=== PATIENT | male | born 1970 | race African-American/Black ===

== ENCOUNTER 2017-04-30 14:56 | Inpatient (IN) | payer MEDICAID ==
[~2017-04-30] VITALS: Ht 180.3 cm; Wt 68.0 kg
[~2017-04-30 14:56] MED LIST: CEPHALEXIN; PHENOBARBITAL; dilantin; divalproex
[2017-04-30] MEDS ORDERED: SODIUM CHLORIDE 0.9% 1,000 ML IV ONE (21:20)
[2017-04-30] MEDS ORDERED: VANCOMYCIN 1 G PREMIX 200 ML IV ONE (21:30)
[2017-04-30] MEDS ORDERED: PIPERACILLIN/TAZ 3.375G PREMIX 50 ML IV ONE (21:30)
[2017-04-30 21:58] LABS: BASOPHILS % 0.2 % (0.0-2.0); EOSINOPHILS % 1.5 % (0.0-5.0); HEMATOCRIT. 35.4 % (42.0-52.0); HEMOGLOBIN. 11.9 g/dL (14.0-18.0); LYMPHOCYTES % 18.9 % (20.0-50.0); MEAN CORPUSCULAR HEMOGLOBIN 28.8 pg (28.0-32.0); MEAN CORPUSCULAR VOLUME 85.9 fL (80.0-94.0); MEAN PLATELET VOLUME 8.4 fl (7.4-10.4); MONOCYTES % 6.9 % (2.0-8.0); NEUTROPHILS % 72.5 % (40.0-76.0); PLATELET 365 x1000/uL (130-400); RED BLOOD CELL COUNT 4.12 mill/uL (4.7-6.1); RED CELL DISTRIBUTION WIDTH 13.9 % (11.6-14.6)
[2017-04-30 22:01] LABS: CHLORIDE 102 mEq/L (98-107)
[2017-04-30 22:02] LABS: PROTHROMBIN TIME 10.7 sec (9.4-11.6)
[2017-04-30 22:05] LABS: CARBON DIOXIDE 27 mEq/L (21-32)
[2017-05-01] VITALS (7 sets, daily range): BP systolic 102–125; BP diastolic 60–76
[2017-05-01 13:35] LABS: BASOPHILS % 0.6 % (0.0-2.0); EOSINOPHILS % 1.1 % (0.0-5.0); HEMATOCRIT. 38.2 % (42.0-52.0); HEMOGLOBIN. 12.6 g/dL (14.0-18.0); LYMPHOCYTES % 18.3 % (20.0-50.0); MEAN CORPUSCULAR HEMOGLOBIN 28.9 pg (28.0-32.0); MEAN CORPUSCULAR VOLUME 87.4 fL (80.0-94.0); MEAN PLATELET VOLUME 8.2 fl (7.4-10.4); MONOCYTES % 7.9 % (2.0-8.0); NEUTROPHILS % 72.1 % (40.0-76.0); PLATELET 430 x1000/uL (130-400); RED BLOOD CELL COUNT 4.37 mill/uL (4.7-6.1); RED CELL DISTRIBUTION WIDTH 13.9 % (11.6-14.6)
[2017-05-01 14:01] LABS: CARBON DIOXIDE 29 mEq/L (21-32); CHLORIDE 101 mEq/L (98-107)
[2017-05-01] MEDS ORDERED: PHENOBARBITAL 100MG TABLET PO SCH (21:00)
[2017-05-01] MEDS ORDERED: CLONIDINE 0.1MG TABLET PO PRN (23:00)
[2017-05-01] MEDS ORDERED: DIPHENHYDRAMINE 50MG/ML VIAL IV PRN (23:00)
[2017-05-01] MEDS ORDERED: IPRATROPIUM/ALBUTEROL 0.5-3(2.5)MG/3ML NEB INH PRN (23:00)
[2017-05-01] MEDS ORDERED: DOCUSATE SODIUM 100MG CAPSULE PO PRN (23:00)
[2017-05-01] MEDS ORDERED: ONDANSETRON HCL 4MG/2ML VIAL IV PRN (23:00)
[2017-05-01] MEDS ORDERED: ACETAMINOPHEN 650MG SUPP PR PRN (23:00)
[2017-05-01] MEDS ORDERED: NA PHOS,M-B/NA PHOS,DI-BA ENEMA 118ML PR PRN (23:00)
[2017-05-01] MEDS ORDERED: PIPERACILLIN/TAZ 2.25G PREMIX 50 ML IV SCH (23:00)
[2017-05-01] MEDS ORDERED: MAGNESIUM/ALUMINUM HYDROXIDE/SIMETHICONE 30ML UDC PO PRN (23:00)
[2017-05-01] MEDS ORDERED: GUAIFENESIN 200MG/10ML SUGAR FREE UDC PO PRN (23:00)
[2017-05-01] MEDS: PHENYTOIN SODIUM EXTENDED 100MG CAPSULE PO SCH (23:39)
[2017-05-01] MEDS: PHENOBARBITAL 30 MG TABLET PO SCH (23:40)
[2017-05-02] VITALS: BP 110/62
[2017-05-02] MEDS: PIPERACILLIN/TAZ 3.375G PREMIX 50 ML IV SCH ×4 (03:34→21:00)
[2017-05-02 04:00] VITALS: BP 105/51
[2017-05-02] MEDS ORDERED: VANCOMYCIN 1 G PREMIX 200 ML IV SCH (04:00)
[2017-05-02] MEDS: PHENYTOIN SODIUM EXTENDED 100MG CAPSULE PO SCH ×3 (07:46→21:54)
[2017-05-02] MEDS: SODIUM CHLORIDE 0.9% INJ 3ML FLUSH IVF SCH ×3 (07:46→22:00)
[2017-05-02 07:50] LABS: BASOPHILS % 0.7 % (0.0-2.0); EOSINOPHILS % 1.3 % (0.0-5.0); HEMATOCRIT. 37.4 % (42.0-52.0); HEMOGLOBIN. 12.7 g/dL (14.0-18.0); LYMPHOCYTES % 17.9 % (20.0-50.0); MEAN CORPUSCULAR HEMOGLOBIN 29.3 pg (28.0-32.0); MEAN CORPUSCULAR VOLUME 86.4 fL (80.0-94.0); MEAN PLATELET VOLUME 8.8 fl (7.4-10.4); MONOCYTES % 8.2 % (2.0-8.0); NEUTROPHILS % 71.9 % (40.0-76.0); PLATELET 433 x1000/uL (130-400); RED BLOOD CELL COUNT 4.33 mill/uL (4.7-6.1); RED CELL DISTRIBUTION WIDTH 13.8 % (11.6-14.6)
[2017-05-02 08:00] VITALS: BP 115/76
[2017-05-02 08:34] LABS: CARBON DIOXIDE 26 mEq/L (21-32); CHLORIDE 102 mEq/L (98-107)
[2017-05-02 08:39] LABS: HDL CHOLESTEROL 28 mg/dL (40-59); LDL CHOLESTEROL 111 mg/dL (5-100)
[2017-05-02] MEDS ORDERED: PHENOBARBITAL 60MG TABLET PO SCH (09:00)
[2017-05-02] MEDS: PHENOBARBITAL 30 MG TABLET PO SCH ×3 (09:20→18:52)
[2017-05-02 12:00] VITALS: BP 104/66
[2017-05-02] MEDS: VANCOMYCIN 1250MG in DEXTROSE 5% WATER 250ML IV SCH ×2 (13:10→20:00)
[2017-05-02 16:00] VITALS: BP 107/66
[2017-05-02 20:00] VITALS: BP 112/68
[2017-05-03] VITALS: BP 114/68
[2017-05-03] MEDS: PIPERACILLIN/TAZ 3.375G PREMIX 50 ML IV SCH ×4 (03:00→21:00)
[2017-05-03 04:00] VITALS: BP 110/68
[2017-05-03] MEDS: VANCOMYCIN 1250MG in DEXTROSE 5% WATER 250ML IV SCH ×3 (04:00→20:00)
[2017-05-03] MEDS: SODIUM CHLORIDE 0.9% INJ 3ML FLUSH IVF SCH ×3 (06:00→22:00)
[2017-05-03] MEDS: PHENYTOIN SODIUM EXTENDED 100MG CAPSULE PO SCH ×3 (07:17→22:06)
[2017-05-03 08:00] VITALS: BP 98/70
[2017-05-03] MEDS: PHENOBARBITAL 30 MG TABLET PO SCH ×3 (08:58→17:02)
[2017-05-03 09:41] LABS: BASOPHILS % 0.7 % (0.0-2.0); EOSINOPHILS % 0.6 % (0.0-5.0); HEMATOCRIT. 37.9 % (42.0-52.0); HEMOGLOBIN. 12.9 g/dL (14.0-18.0); LYMPHOCYTES % 18.4 % (20.0-50.0); MEAN CORPUSCULAR HEMOGLOBIN 29.2 pg (28.0-32.0); MEAN CORPUSCULAR VOLUME 85.8 fL (80.0-94.0); MEAN PLATELET VOLUME 8.3 fl (7.4-10.4); MONOCYTES % 6.8 % (2.0-8.0); NEUTROPHILS % 73.5 % (40.0-76.0); PLATELET 466 x1000/uL (130-400); RED BLOOD CELL COUNT 4.42 mill/uL (4.7-6.1); RED CELL DISTRIBUTION WIDTH 14.1 % (11.6-14.6)
[2017-05-03 10:12] LABS: CARBON DIOXIDE 26 mEq/L (21-32); CHLORIDE 101 mEq/L (98-107)
[2017-05-03 10:15] LABS: VANCOMYCIN TROUGH 3.2 ug/mL (5.0-10.0)
[2017-05-03 12:00] VITALS: BP 101/71
[2017-05-03 16:00] VITALS: BP 115/60
[2017-05-03] MEDS: HYDROCODONE/ACETAMINOPHEN 5/325MG TABLET PO PRN ×2 (18:56→23:28)
[2017-05-03 20:00] VITALS: BP 98/71
[2017-05-04] VITALS: BP 129/66
[2017-05-04] MEDS: PIPERACILLIN/TAZ 3.375G PREMIX 50 ML IV SCH ×2 (03:00→09:00)
[2017-05-04] MEDS: VANCOMYCIN 1250MG in DEXTROSE 5% WATER 250ML IV SCH ×2 (03:28→12:00)
[2017-05-04 04:00] VITALS: BP 109/74
[2017-05-04] MEDS: SODIUM CHLORIDE 0.9% INJ 3ML FLUSH IVF SCH (05:46)
[2017-05-04] MEDS: PHENYTOIN SODIUM EXTENDED 100MG CAPSULE PO SCH (06:04)
[2017-05-04 08:00] VITALS: BP 118/73
[2017-05-04] MEDS: PHENOBARBITAL 30 MG TABLET PO SCH ×2 (09:16→13:00)
[2017-05-04 12:16] VITALS: BP 98/74
== END 2017-05-04 12:15 | disposition left against medical advice (07) | DRG 317 ==
LOC: ER 16:05 → EDBEDREQ 21:33 → EDBEDREQSVC 21:37 → EDBEDREQ 21:37 → 6EST 22:39 → ENRESERV 22:40
PROVIDERS: ADMIT Family Medicine; ATTEND Family Medicine
PROC: 0J9Q0ZZ Drainage of Right Foot Subcutaneous Tissue and Fascia, Open Approach (ICD-10-PCS; principal; 2017-05-03)
PROC: 02HV33Z Insertion of Infusion Device into Superior Vena Cava, Percutaneous Approach (ICD-10-PCS; 2017-05-04)
PROC: B5181ZA Fluoroscopy of Superior Vena Cava using Low Osmolar Contrast, Guidance (ICD-10-PCS; 2017-05-04)
PROC: B548ZZA Ultrasonography of Superior Vena Cava, Guidance (ICD-10-PCS; 2017-05-04)
DX: M86.8X7 Other osteomyelitis, ankle and foot (principal); E43 Unspecified severe protein-calorie malnutrition; G40.909 Epilepsy, unspecified, not intractable, without status epilepticus; L02.416 Cutaneous abscess of left lower limb; L03.116 Cellulitis of left lower limb; L02.611 Cutaneous abscess of right foot; F17.210 Nicotine dependence, cigarettes, uncomplicated; F12.90 Cannabis use, unspecified, uncomplicated; L97.529 Non-pressure chronic ulcer of other part of left foot with unspecified severity; Z79.899 Other long term (current) drug therapy; Z89.422 Acquired absence of other left toe(s); Z68.20 Body mass index [BMI] 20.0-20.9, adult
CPT/HCPCS: 36415; 36569; 73630; 73718; 76937; 77001; 80053; 80061; 80202; 83605; 85025; 85610; 85651; 87040; 87070; 87205; 93005; 96365; 96368; 99285; C1725; J2543; J3370; J7030; J7040; J7060

== ENCOUNTER 2017-05-17 13:55 | Emergency (ER) | payer MEDICAID ==
[~2017-05-17] VITALS: Ht 185.4 cm; Wt 78.0 kg
[2017-05-17 14:14] VITALS: BP 127/67
== END 2017-05-17 19:00 | disposition left against medical advice (07) ==
LOC: ER 15:20
DX: Z45.2 Encounter for adjustment and management of vascular access device (principal); I10 Essential (primary) hypertension; G40.909 Epilepsy, unspecified, not intractable, without status epilepticus; Z79.899 Other long term (current) drug therapy
CPT/HCPCS: 99281; Z7610

== ENCOUNTER 2018-12-11 19:45 | Inpatient (IN) | payer MEDICAID ==
[~2018-12-11] VITALS: Ht 175.3 cm; Wt 73.9 kg
[2018-12-11] MEDS ORDERED: ONDANSETRON HCL 4MG/2ML INJ IV STA (21:42)
[2018-12-11] MEDS ORDERED: SODIUM CHLORIDE 0.9% 1,000 ML IV ONE (21:42)
[2018-12-11] MEDS ORDERED: MORPHINE SULFATE 4 MG/ML CPJ (NOT FOR IM USE) IV STA (21:42)
[2018-12-12 00:27] LABS: CHLORIDE 104 mEq/L (98-107)
[2018-12-12 00:29] LABS: HEMATOCRIT. 40.8 % (42.0-52.0); HEMOGLOBIN. 13.7 g/dL (14.0-18.0); MEAN CORPUSCULAR HEMOGLOBIN 29.4 pg (28.0-32.0); MEAN CORPUSCULAR VOLUME 87.9 fL (80.0-94.0); MEAN PLATELET VOLUME 8.8 fl (7.4-10.4); PLATELET 235 x1000/uL (130-400); RED BLOOD CELL COUNT 4.64 mill/uL (4.7-6.1); RED CELL DISTRIBUTION WIDTH 14.8 % (11.6-14.6)
[2018-12-12] MEDS ORDERED: SODIUM CHLORIDE 0.9% 1000ML BAG (SEPSIS BOLUS) IV ONE (00:45)
[2018-12-12] MEDS ORDERED: LEVOFLOXACIN 750MG PREMIX 150 ML IV ONE (00:45)
[2018-12-12 01:25] LABS: CLARITY URINE CLEAR (CLEAR); COLOR URINE YELLOW (YELLOW); KETONES URINE NEGATIVE (NEGATIVE); LEUKOCYTE ESTERASE URINE NEGATIVE (NEGATIVE); NITRITE URINE NEGATIVE (NEGATIVE); OCCULT BLOOD URINE NEGATIVE (NEGATIVE); PROTEIN URINE NEGATIVE (NEGATIVE); SPECIFIC GRAVITY URINE 1.015 (1.005-1.030)
[2018-12-12 02:57] LABS: PLATELET ESTIMATE NORMAL
[2018-12-12 04:10] VITALS: BP 125/71
[2018-12-12 04:30] VITALS: BP 125/71
[2018-12-12 08:00] VITALS: BP 135/65
[2018-12-12] MEDS: MORPHINE SULFATE 4 MG/ML CPJ (NOT FOR IM USE) IV PRN ×2 (11:30→20:29)
[2018-12-12 12:11] VITALS: BP 139/72
[2018-12-12 12:39] LABS: BASOPHILS % 0.4 % (0.0-2.0); EOSINOPHILS % 0.2 % (0.0-5.0); HEMATOCRIT. 39.9 % (42.0-52.0); HEMOGLOBIN. 13.1 g/dL (14.0-18.0); LYMPHOCYTES % 7.7 % (20.0-50.0); MEAN CORPUSCULAR HEMOGLOBIN 29.2 pg (28.0-32.0); MEAN CORPUSCULAR VOLUME 89.1 fL (80.0-94.0); MEAN PLATELET VOLUME 8.6 fl (7.4-10.4); MONOCYTES % 6.2 % (2.0-8.0); NEUTROPHILS % 85.5 % (40.0-76.0); PLATELET 215 x1000/uL (130-400); RED BLOOD CELL COUNT 4.48 mill/uL (4.7-6.1); RED CELL DISTRIBUTION WIDTH 15.1 % (11.6-14.6)
[2018-12-12 12:46] LABS: CHLORIDE 106 mEq/L (98-107)
[2018-12-12 16:24] VITALS: BP 132/79
[2018-12-12 20:00] VITALS: BP 123/68
[2018-12-13] VITALS: BP 122/79
[2018-12-13 04:00] VITALS: BP 139/74
[2018-12-13 08:00] VITALS: BP 140/76
[2018-12-13] MEDS ORDERED: [UNRECOGNIZED DRUG - OTHER] (10:58)
[2018-12-13] MEDS ORDERED: TC1U15 TP (11:01)
[2018-12-13] MEDS ORDERED: CHOL100046 MT (11:05)
[2018-12-13 12:00] VITALS: BP 135/75
[2018-12-13] MEDS: PHENOBARBITAL 30 MG TABLET PO SCH ×3 (12:58→18:29)
[2018-12-13] MEDS: PHENYTOIN SODIUM EXTENDED 100MG CAPSULE PO SCH ×2 (12:58→20:11)
[2018-12-13] MEDS: HYDROCODONE/ACETAMINOPHEN 5/325MG TABLET PO PRN ×2 (13:04→20:03)
[2018-12-13 16:00] VITALS: BP 133/79
[2018-12-13] MEDS: MORPHINE SULFATE 4 MG/ML CPJ (NOT FOR IM USE) IV PRN (16:37)
[2018-12-13 20:00] VITALS: BP 138/74
[2018-12-14] VITALS: BP 148/77
[2018-12-14 04:00] VITALS: BP 148/65
[2018-12-14 06:19] LABS: BASOPHILS % 0.6 % (0.0-2.0); EOSINOPHILS % 0.3 % (0.0-5.0); HEMATOCRIT. 40.2 % (42.0-52.0); HEMOGLOBIN. 13.5 g/dL (14.0-18.0); LYMPHOCYTES % 17.8 % (20.0-50.0); MEAN CORPUSCULAR HEMOGLOBIN 29.2 pg (28.0-32.0); MEAN PLATELET VOLUME 9.1 fl (7.4-10.4); MONOCYTES % 8.3 % (2.0-8.0); PLATELET 257 x1000/uL (130-400); RED BLOOD CELL COUNT 4.62 mill/uL (4.7-6.1); RED CELL DISTRIBUTION WIDTH 14.8 % (11.6-14.6)
[2018-12-14 06:28] LABS: CHLORIDE 102 mEq/L (98-107)
[2018-12-14] MEDS: PHENYTOIN SODIUM EXTENDED 100MG CAPSULE PO SCH (06:32)
== END 2018-12-14 08:44 | disposition left against medical advice (07) | DRG 135 ==
LOC: ER 19:45 → 8WST 12-12 01:56 → ENRESERV 12-12 03:19
PROVIDERS: ADMIT Internal Medicine; ATTEND Internal Medicine
DX: S22.42XA Multiple fractures of ribs, left side, initial encounter for closed fracture (principal); J80 Acute respiratory distress syndrome; L97.529 Non-pressure chronic ulcer of other part of left foot with unspecified severity; D64.9 Anemia, unspecified; S00.83XA Contusion of other part of head, initial encounter; D72.825 Bandemia; G40.909 Epilepsy, unspecified, not intractable, without status epilepticus; R09.02 Hypoxemia; R73.9 Hyperglycemia, unspecified; Y93.55 Activity, bike riding; L84 Corns and callosities; V29.9XXA Motorcycle rider (driver) (passenger) injured in unspecified traffic accident, initial encounter; Y92.410 Unspecified street and highway as the place of occurrence of the external cause; Y99.8 Other external cause status; Z89.422 Acquired absence of other left toe(s)
CPT/HCPCS: 36415; 70486; 71045; 71250; 73560; 80048; 83605; 87076; 93005; 93970; 96374; 99285; C1893; J1956; J2270; J2405; J7030; J7040; A4315

== ENCOUNTER 2019-02-08 13:09 | Emergency (ER) | payer MEDICAID ==
[~2019-02-08] VITALS: Ht 177.8 cm; Wt 82.0 kg
[~2019-02-08 13:09] MED LIST changes: +CHOL100046 MT; +TC1U15 TP; +[UNRECOGNIZED DRUG - OTHER]
[2019-02-08 13:15] VITALS: BP 103/62
== END 2019-02-08 14:26 | disposition left against medical advice (07) ==
LOC: ER 13:09
DX: Z53.21 Procedure and treatment not carried out due to patient leaving prior to being seen by health care provider (principal)
CPT/HCPCS: 99281

== ENCOUNTER 2019-02-08 18:53 | Emergency (ER) | payer MEDICAID ==
[~2019-02-08] VITALS: Ht 172.7 cm; Wt 84.0 kg
[2019-02-08 20:35] VITALS: BP 114/62
== END 2019-02-08 21:11 | disposition home or self-care (01) ==
LOC: ER 18:53
DX: H92.01 Otalgia, right ear (principal); E11.9 Type 2 diabetes mellitus without complications; G40.909 Epilepsy, unspecified, not intractable, without status epilepticus
CPT/HCPCS: 99283

== ENCOUNTER 2020-02-13 17:40 | Emergency (ER) | payer MEDICAID ==
[~2020-02-13] VITALS: Ht 177.8 cm; Wt 82.0 kg
[2020-02-13 17:47] VITALS: BP 127/66
[2020-02-13] MEDS ORDERED: IBUPROFEN 600MG TABLET PO ONE (18:30)
== END 2020-02-13 21:00 | disposition left against medical advice (07) ==
LOC: ER 17:40
DX: S69.92XA Unspecified injury of left wrist, hand and finger(s), initial encounter (principal); Z79.899 Other long term (current) drug therapy; V29.88XA Motorcycle rider (driver) (passenger) injured in other specified transport accidents, initial encounter; Y93.55 Activity, bike riding; Y92.89 Other specified places as the place of occurrence of the external cause; Y99.8 Other external cause status
CPT/HCPCS: 99283

== ENCOUNTER 2020-02-13 22:27 | Emergency (ER) | payer MEDICAID ==
[~2020-02-13] VITALS: Ht 180.3 cm; Wt 84.0 kg
[2020-02-13 23:58] VITALS: BP 131/71
[2020-02-14] MEDS ORDERED: KETOROLAC 30MG/ML VIAL IM ONE
== END 2020-02-14 01:56 | disposition home or self-care (01) ==
LOC: ER 22:27
DX: S62.015A Nondisplaced fracture of distal pole of navicular [scaphoid] bone of left wrist, initial encounter for closed fracture (principal); G40.909 Epilepsy, unspecified, not intractable, without status epilepticus; V14.4XXA Pedal cycle driver injured in collision with heavy transport vehicle or bus in traffic accident, initial encounter; Y93.89 Activity, other specified; Y92.488 Other paved roadways as the place of occurrence of the external cause
CPT/HCPCS: 29125; 73110; 96372; 99283; J1885

== ENCOUNTER 2020-02-14 17:37 | Emergency (ER) | payer MEDICAID ==
[~2020-02-14] VITALS: Ht 180.3 cm; Wt 82.0 kg
[2020-02-14 17:42] VITALS: BP 124/78
== END 2020-02-14 18:26 | disposition home or self-care (01) ==
LOC: ER 17:37
DX: Z76.0 Encounter for issue of repeat prescription (principal); G40.909 Epilepsy, unspecified, not intractable, without status epilepticus
CPT/HCPCS: 99281

== ENCOUNTER 2020-07-01 18:18 | Emergency (ER) | payer MEDICAID ==
[~2020-07-01] VITALS: Ht 172.7 cm; Wt 65.0 kg
[2020-07-01 19:29] LABS: BASOPHILS % 0.6 % (0.0-2.0); EOSINOPHILS % 0.7 % (0.0-5.0); HEMATOCRIT. 40.1 % (42.0-52.0); HEMOGLOBIN. 13.3 g/dL (14.0-18.0); LYMPHOCYTES % 14.9 % (20.0-50.0); MEAN CORPUSCULAR HEMOGLOBIN 28.5 pg (28.0-32.0); MEAN CORPUSCULAR VOLUME 85.6 fL (80.0-94.0); MEAN PLATELET VOLUME 7.9 fl (7.4-10.4); NEUTROPHILS % 79.8 % (40.0-76.0); PLATELET 464 x1000/uL (130-400); RED BLOOD CELL COUNT 4.68 mill/uL (4.7-6.1); RED CELL DISTRIBUTION WIDTH 15.9 % (11.6-14.6)
[2020-07-01 19:35] LABS: CHLORIDE 106 mEq/L (98-107)
[2020-07-01 19:41] LABS: ETHANOL BLOOD < 10 mg/dL
[2020-07-01 19:56] VITALS: BP 122/81
[2020-07-01 20:07] LABS: PHENOBARBITAL < 2.1 ug/mL (15.0-40.0)
== END 2020-07-01 21:33 | disposition home or self-care (01) ==
LOC: ER 18:18
DX: G40.909 Epilepsy, unspecified, not intractable, without status epilepticus (principal); R03.0 Elevated blood-pressure reading, without diagnosis of hypertension
CPT/HCPCS: 36415; 70450; 71045; 80053; 80184; 80185; 80320; 84484; 85025; 93005; 99285; Z7610; G0480

== ENCOUNTER 2021-01-05 22:44 | Emergency (ER) | payer MEDICAID ==
[~2021-01-05] VITALS: Ht 172.7 cm; Wt 82.0 kg
[2021-01-05 23:27] LABS: BASOPHILS % 0.7 % (0.0-2.0); EOSINOPHILS % 2.2 % (0.0-5.0); HEMATOCRIT. 38.2 % (42.0-52.0); HEMOGLOBIN. 12.6 g/dL (14.0-18.0); LYMPHOCYTES % 25.9 % (20.0-50.0); MEAN CORPUSCULAR HEMOGLOBIN 28.2 pg (28.0-32.0); MEAN CORPUSCULAR VOLUME 85.6 fL (80.0-94.0); MEAN PLATELET VOLUME 8.5 fl (7.4-10.4); MONOCYTES % 5.4 % (2.0-8.0); NEUTROPHILS % 65.8 % (40.0-76.0); PLATELET 330 x1000/uL (130-400); RED BLOOD CELL COUNT 4.46 mill/uL (4.7-6.1); RED CELL DISTRIBUTION WIDTH 14.7 % (11.6-14.6)
[2021-01-05 23:33] LABS: CHLORIDE 108 mEq/L (98-107)
[2021-01-05 23:37] LABS: ETHANOL BLOOD < 10 mg/dL
[2021-01-06 01:30] VITALS: BP 111/71
== END 2021-01-06 01:48 | disposition home or self-care (01) ==
LOC: ER 22:44
DX: G40.909 Epilepsy, unspecified, not intractable, without status epilepticus (principal); Z87.820 Personal history of traumatic brain injury; D64.9 Anemia, unspecified; R00.0 Tachycardia, unspecified; D72.829 Elevated white blood cell count, unspecified
CPT/HCPCS: 36415; 80048; 80320; 82962; 85025; 99283; G0480

== ENCOUNTER 2021-02-05 08:23 | Inpatient (IN) | payer MEDICAID ==
[~2021-02-05] VITALS: Ht 172.7 cm; Wt 61.4 kg
[2021-02-05] MEDS ORDERED: VANCOMYCIN 1 G PREMIX 200 ML IV ONE (09:15)
[2021-02-05] MEDS ORDERED: PIPERACILLIN/TAZ 3.375G PREMIX 50 ML IV ONE (09:15)
[2021-02-05 09:20] LABS: BASOPHILS % 0.2 % (0.0-2.0); EOSINOPHILS % 0.3 % (0.0-5.0); HEMATOCRIT. 34.3 % (42.0-52.0); HEMOGLOBIN. 11.6 g/dL (14.0-18.0); LYMPHOCYTES % 10.3 % (20.0-50.0); MEAN CORPUSCULAR HEMOGLOBIN 28.6 pg (28.0-32.0); MEAN CORPUSCULAR VOLUME 84.2 fL (80.0-94.0); MEAN PLATELET VOLUME 8.2 fl (7.4-10.4); MONOCYTES % 8.2 % (2.0-8.0); PLATELET 428 x1000/uL (130-400); RED BLOOD CELL COUNT 4.07 mill/uL (4.7-6.1); RED CELL DISTRIBUTION WIDTH 15.6 % (11.6-14.6)
[2021-02-05 09:22] LABS: CHLORIDE 101 mEq/L (98-107)
[2021-02-05 10:22] LABS: C REACTIVE PROTEIN CARDIAC > 190.00 mg/L (0.00-3.00)
[2021-02-05 18:00] VITALS: BP 111/79
[2021-02-05 20:00] VITALS: BP 104/64
[2021-02-05] MEDS ORDERED: MORPHINE SULFATE 2 MG/ML CPJ (NOT FOR IM USE) IV PRN (20:45)
[2021-02-05 21:00] VITALS: BP 104/64
[2021-02-05] MEDS ORDERED: ENOXAPARIN 40MG/0.4ML SYR SUBCUT SCH (21:00)
[2021-02-05] MEDS ORDERED: PIPERACILLIN/TAZOBACTAM 3.375 G/VIAL IV SCH (22:00)
[2021-02-05] MEDS ORDERED: PHENOBARBITAL 60MG TABLET PO ONE (22:00)
[2021-02-05] MEDS: PIPERACILLIN/TAZOBACTAM 3.375G in DEXT 5% WATER 50ML IV SCH (23:09)
[2021-02-05] MEDS: VANCOMYCIN 750 MG PREMIX 150 ML IV SCH (23:09)
[2021-02-06 04:00] VITALS: BP 110/65
[2021-02-06] MEDS: VANCOMYCIN 750 MG PREMIX 150 ML IV SCH (05:26)
[2021-02-06] MEDS: PIPERACILLIN/TAZOBACTAM 3.375G in DEXT 5% WATER 50ML IV SCH (05:26)
[2021-02-06 05:58] LABS: CHLORIDE 103 mEq/L (98-107)
[2021-02-06 06:12] LABS: BASOPHILS % 0.7 % (0.0-2.0); EOSINOPHILS % 0.2 % (0.0-5.0); HEMATOCRIT. 35.6 % (42.0-52.0); HEMOGLOBIN. 11.9 g/dL (14.0-18.0); LYMPHOCYTES % 9.3 % (20.0-50.0); MEAN CORPUSCULAR HEMOGLOBIN 27.5 pg (28.0-32.0); MEAN CORPUSCULAR VOLUME 82.4 fL (80.0-94.0); MEAN PLATELET VOLUME 9.1 fl (7.4-10.4); MONOCYTES % 7.9 % (2.0-8.0); NEUTROPHILS % 81.9 % (40.0-76.0); PLATELET 353 x1000/uL (130-400); RED BLOOD CELL COUNT 4.32 mill/uL (4.7-6.1); RED CELL DISTRIBUTION WIDTH 15.2 % (11.6-14.6)
[2021-02-06 08:00] VITALS: BP 126/78
[2021-02-06] MEDS ORDERED: PHENOBARBITAL 30 MG TABLET PO SCH (09:00)
[2021-02-06] MEDS ORDERED: HYDROCODONE/ACETAMINOPHEN 5/325MG TABLET PO PRN (11:30)
[2021-02-06] MEDS ORDERED: PIPERACILLIN/TAZOBACTAM 3.375G in DEXT 5% WATER 50ML IV SCH (12:00)
== END 2021-02-06 12:20 | disposition left against medical advice (07) | DRG 720 ==
LOC: ER 08:23 → EDBEDREQ 15:32 → EDBEDREQTM 15:32 → 6EST 15:33 → ENRESERV 15:41
PROVIDERS: ADMIT Internal Medicine; ATTEND Internal Medicine
DX: A41.9 Sepsis, unspecified organism (principal); E44.0 Moderate protein-calorie malnutrition; E87.1 Hypo-osmolality and hyponatremia; E87.5 Hyperkalemia; D64.9 Anemia, unspecified; G40.909 Epilepsy, unspecified, not intractable, without status epilepticus; M86.672 Other chronic osteomyelitis, left ankle and foot; L03.116 Cellulitis of left lower limb; Z68.20 Body mass index [BMI] 20.0-20.9, adult; Z79.899 Other long term (current) drug therapy
CPT/HCPCS: 36415; 71045; 73600; 73700; 80048; 80053; 85025; 85651; 86141; 99285; J1650; J2270; J2543; J3370; J7040; J7060

== ENCOUNTER 2021-02-10 15:04 | Emergency (ER) | payer MEDICAID ==
[~2021-02-10] VITALS: Ht 180.3 cm; Wt 80.0 kg
[2021-02-10 15:38] VITALS: BP 121/79
[2021-02-10] MEDS ORDERED: SULFAMETHOXAZOLE/TRIMETHOPRIM 800/160MG TABLET PO ONE (16:30)
[2021-02-10] MEDS ORDERED: CEPHALEXIN 250MG CAPSULE PO ONE (16:30)
[2021-02-10] MEDS ORDERED: LIDOCAINE HCL 1% 20ML VIAL (Pyxis) INJ INFIL ONE (16:30)
[2021-02-10] MEDS ORDERED: SULF1TAB48 MT (18:45)
[2021-02-10] MEDS ORDERED: CEPH500C2 MT (18:45)
== END 2021-02-10 19:14 | disposition home or self-care (01) ==
LOC: ER 15:04
DX: L02.612 Cutaneous abscess of left foot (principal); E11.621 Type 2 diabetes mellitus with foot ulcer; L97.528 Non-pressure chronic ulcer of other part of left foot with other specified severity; I10 Essential (primary) hypertension; G40.909 Epilepsy, unspecified, not intractable, without status epilepticus; Z89.422 Acquired absence of other left toe(s); F12.90 Cannabis use, unspecified, uncomplicated
CPT/HCPCS: 10060; 73630; 99284; A4217; J3490; Z7610

== ENCOUNTER 2021-04-09 15:15 | Emergency (ER) | payer MEDICAID ==
[~2021-04-09] VITALS: Ht 170.2 cm; Wt 80.0 kg
[~2021-04-09 15:15] MED LIST changes: +CEPH500C2 MT; +SULF1TAB48 MT
[2021-04-09 15:20] VITALS: BP 115/70
[2021-04-09] MEDS ORDERED: PHENYTOIN SODIUM EXTENDED 100MG CAPSULE PO ONE (16:00)
== END 2021-04-09 18:12 | disposition left against medical advice (07) ==
LOC: ER 15:15
DX: G40.909 Epilepsy, unspecified, not intractable, without status epilepticus (principal); R00.1 Bradycardia, unspecified
CPT/HCPCS: 93005; 99283

== ENCOUNTER 2023-10-24 10:22 | Emergency (ER) | payer MEDICAID, OTHER ==
[~2023-10-24] VITALS: Ht 170.2 cm; Wt 70.0 kg
[2023-10-24 10:23] VITALS: O2SAT 98
[2023-10-24] MEDS: LEVETIRACETAM 500MG PREMIX 100 ML IV ONE (11:04)
[2023-10-24 11:10] LABS: BASOPHILS % 0.7 % (0.0-2.0); EOSINOPHILS % 0.8 % (0.0-5.0); HEMATOCRIT. 39.5 % (42.0-52.0); HEMOGLOBIN. 13.3 g/dL (14.0-18.0); LYMPHOCYTES % 22.6 % (20.0-50.0); MEAN CORPUSCULAR HEMOGLOBIN 29.2 pg (28.0-32.0); MEAN CORPUSCULAR HGB CONC 33.8 g/dL (31.0-37.0); MEAN CORPUSCULAR VOLUME 86.4 fL (80.0-94.0); MEAN PLATELET VOLUME 7.8 fl (7.4-10.4); MONOCYTES % 6.6 % (2.0-8.0); NEUTROPHILS % 69.3 % (40.0-76.0); PLATELET 358 x1000/uL (130-400); RED BLOOD CELL COUNT 4.57 mill/uL (4.7-6.1); RED CELL DISTRIBUTION WIDTH 14.4 % (11.6-14.6); WHITE BLOOD COUNT 10.4 x1000/uL (4.5-11.0)
[2023-10-24 11:29] LABS: ALANINE AMINOTRANSFERASE 18 IU/L (10-49); ALBUMIN 4.3 g/dL (3.2-4.8); ASPARTATE AMINOTRANSFERASE 19 IU/L (<34); BILIRUBIN TOTAL 0.2 mg/dL (0.1-1.0); CALCIUM 8.8 mg/dL (8.7-10.4); CARBON DIOXIDE 22 mEq/L (21-32); CHLORIDE 107 mEq/L (98-107); CREATININE 0.8 mg/dL (0.6-1.3); GLUCOSE 107 mg/dL (70-105); POTASSIUM 4.2 mEq/L (3.5-5.1); PROTEIN TOTAL 7.8 g/dL (6.0-8.3); SODIUM 138 mEq/L (136-145); UREA NITROGEN BLOOD 11 mg/dL (9-23)
[2023-10-24] MEDS ORDERED: PHEN97.22 MT (12:28)
[2023-10-24 12:30] VITALS: BP 109/65; PULSE 75; RESP 20; TEMP 98.9
== END 2023-10-24 12:44 | disposition home or self-care (01) ==
LOC: ER 10:22
DX: R56.9 Unspecified convulsions (principal); F12.10 Cannabis abuse, uncomplicated; Z79.899 Other long term (current) drug therapy
CPT/HCPCS: 99283; 96374; 80053; 85025; 36415; J1953

== ENCOUNTER 2025-01-02 13:03 | Emergency (ER) | payer OTHER ==
[~2025-01-02] VITALS: Ht 172.7 cm; Wt 75.0 kg
[~2025-01-02 13:03] MED LIST changes: +PHEN100C12 PO; +PHEN97.22 MT
[2025-01-02 14:13] VITALS: BP 115/75; TEMP 36.9; O2SAT 95
[2025-01-02] MEDS: ALBUTEROL (0.083%) 2.5MG/3ML NEB HHN STA (14:38)
[2025-01-02 14:40] VITALS: PULSE 95; RESP 22; O2SAT 94
[2025-01-02] MEDS: METHYLPREDNISOLONE SOD SUCC 125MG/2ML (ACT-O-VIAL) IV ONE (14:55)
[2025-01-02 14:58] LABS: CHLORIDE 102 mEq/L (98-107); POTASSIUM 4.8 mEq/L (3.5-5.1); SODIUM 137 mEq/L (136-145)
[2025-01-02 14:59] LABS: CALCIUM 9.4 mg/dL (8.7-10.4); CARBON DIOXIDE 27 mEq/L (21-32)
[2025-01-02 15:04] LABS: CREATININE 0.6 mg/dL (0.6-1.3); GLUCOSE 106 mg/dL (70-105); UREA NITROGEN BLOOD 15 mg/dL (9-23)
[2025-01-02 15:08] LABS: BASOPHILS % 0.6 % (0.0-2.0); EOSINOPHILS % 1.1 % (0.0-5.0); HEMATOCRIT. 43.6 % (42.0-52.0); HEMOGLOBIN. 13.8 g/dL (14.0-18.0); LYMPHOCYTES % 19.9 % (20.0-50.0); MEAN CORPUSCULAR HGB CONC 31.8 g/dL (31.0-37.0); MEAN CORPUSCULAR VOLUME 84.8 fL (80.0-94.0); MEAN PLATELET VOLUME 8.5 fl (7.4-10.4); MONOCYTES % 7.6 % (2.0-8.0); NEUTROPHILS % 70.8 % (40.0-76.0); PLATELET 332 x1000/uL (130-400); RED BLOOD CELL COUNT 5.14 mill/uL (4.7-6.1); RED CELL DISTRIBUTION WIDTH 14.7 % (11.6-14.6); WHITE BLOOD COUNT 12.1 x1000/uL (4.5-11.0)
== END 2025-01-02 15:51 | disposition left against medical advice (07) ==
LOC: ER 13:03
DX: R06.02 Shortness of breath (principal); R06.2 Wheezing; Z79.899 Other long term (current) drug therapy
CPT/HCPCS: 80048; 83605; 85025; 36415; 70360; 71045; 93005; 96374; 99285; J2919; Z7610

== ENCOUNTER 2025-05-28 10:00 | Inpatient (IN) | payer MEDICAID ==
[2025-05-28] VITALS (25 sets, daily range): BP systolic 73–128; BP diastolic 59–82; PULSE 75–121; RESP 17–25; TEMP 36.4–36.6; O2SAT 95–100
[~2025-05-28] VITALS: Ht 172.7 cm; Wt 52.2 kg
[~2025-05-28 10:00] MED LIST changes: +ALBU18HF2 PO; +AMLO5TAB88 PO; +BUDE6HFA PO; -CEPH500C2 MT; -CEPHALEXIN; -CHOL100046 MT; +DEX4 MT; +ERGO1250 PO; +IPRA3AMP9 NEB; +LACO100T2 PO; +LEVE500S9 NG; -PHEN100C12 PO; -PHEN97.22 MT; -PHENOBARBITAL; -SULF1TAB48 MT; -TC1U15 TP; +TIOT4MIS2 INH; +TOPUD PO; -[UNRECOGNIZED DRUG - OTHER]; -dilantin; -divalproex
[2025-05-28] MEDS: IPRATROPIUM BROMIDE (0.02%) 0.5MG/2.5ML NEB HHN SCH (10:48)
[2025-05-28] MEDS: ALBUTEROL (0.083%) 2.5MG/3ML NEB HHN SCH (10:53)
[2025-05-28] MEDS: METHYLPREDNISOLONE SOD SUCC 125MG/2ML (ACT-O-VIAL) IV ONE (10:57)
[2025-05-28 11:07] LABS: BASOPHILS % 0.6 % (0.0-2.0); EOSINOPHILS % 0.1 % (0.0-5.0); HEMATOCRIT. 38.5 % (42.0-52.0); HEMOGLOBIN. 12.4 g/dL (14.0-18.0); LYMPHOCYTES % 7.8 % (20.0-50.0); MEAN PLATELET VOLUME 8.5 fl (7.4-10.4); MONOCYTES % 5.8 % (2.0-8.0); NEUTROPHILS % 85.7 % (40.0-76.0); PLATELET 360 x1000/uL (130-400); RED BLOOD CELL COUNT 4.41 mill/uL (4.7-6.1); RED CELL DISTRIBUTION WIDTH 13.4 % (11.6-14.6)
[2025-05-28 11:24] LABS: TROPONIN I HIGH SENSITIVITY 7 ng/L (3.0-53)
[2025-05-28 11:25] LABS: CREATININE 0.3 mg/dL (0.6-1.3); UREA NITROGEN BLOOD 12 mg/dL (9-23)
[2025-05-28 11:27] LABS: ASPARTATE AMINOTRANSFERASE 18 IU/L (<34); BILIRUBIN DIRECT 0.1 mg/dL (<=3.0); BILIRUBIN TOTAL 0.5 mg/dL (0.1-1.0); PROTEIN TOTAL 7.1 g/dL (6.0-8.3)
[2025-05-28] MEDS: AZITHROMYCIN 500MG/250ML 250 ML IV ONE (12:34)
[2025-05-28] MEDS ORDERED: ONDANSETRON HCL 4MG/2ML INJ IV PRN (12:45)
[2025-05-28] MEDS ORDERED: POTASSIUM CHLORIDE 20MEQ TABLET SR PO ONE (12:45)
[2025-05-28 12:56] LABS: BG BASE EXCESS 7.9 mmol/L (-2.0-3.0); BG CARBOXYHEMOGLOBIN 0.1 % (0.5-1.5); BG DEOXYHEMOGLOBIN 6.0 % (0.0-5.0); BG FRACTION INSPIRED OXYGEN 40; BG HCO3 ACT 42.7 mmol/L (21.0-28.0); BG METHEMOGLOBIN 0.7 % (0.5-1.5); BG OXYGEN SATURATION 94.0 % (94.0-98.0); BG OXYHEMOGLOBIN 93.2 % (94.0-98.0); BG PCO2 138.3 mmHg (35.0-48.0); BG PH 7.107 (7.350-7.450); BG PO2 86.9 mmHg (83.0-108.0); BG SAMPLE SITE RIGHT BRACHIAL; BG TOTAL HEMOGLOBIN 13.8 g/dL (13.5-17.5); BG TOTAL RESPIRATORY RATE 29 b/min; BG VENT MODE MASK - BIPAP; BG VENT RATE 12.0 set
[2025-05-28] MEDS ORDERED: CEFTRIAXONE 1GM/50ML 50 ML IV SCH (13:00)
[2025-05-28] MEDS ORDERED: LEVETIRACETAM 2000 MG NG SCH (13:00)
[2025-05-28 13:14] LABS: TROPONIN I HIGH SENSITIVITY 9 ng/L (3.0-53)
[2025-05-28] MEDS: SODIUM ZIRCONIUM CYCLOSILICATE 10GM/PACKET PO NR (13:19)
[2025-05-28 15:30] LABS: BG BASE EXCESS 8.4 mmol/L (-2.0-3.0); BG CARBOXYHEMOGLOBIN 0.8 % (0.5-1.5); BG DEOXYHEMOGLOBIN 2.4 % (0.0-5.0); BG FRACTION INSPIRED OXYGEN 40; BG HCO3 ACT 43.0 mmol/L (21.0-28.0); BG METHEMOGLOBIN 0.3 % (0.5-1.5); BG OXYGEN SATURATION 97.6 % (94.0-98.0); BG OXYHEMOGLOBIN 96.5 % (94.0-98.0); BG PCO2 137.4 mmHg (35.0-48.0); BG PH 7.113 (7.350-7.450); BG PO2 112.9 mmHg (83.0-108.0); BG SAMPLE SITE RIGHT RADIAL; BG TOTAL HEMOGLOBIN 13.5 g/dL (13.5-17.5); BG VENT MODE MASK - BIPAP; BG VENT RATE 18.0 set
[2025-05-28] MEDS ORDERED: NOREPINEPHRINE 8MG/250ML PMX 250 ML IV PRN (17:15)
[2025-05-28] MEDS: METHYLPREDNISOLONE SOD SUCC 40MG/ML (ACT-O-VIAL) IV SCH (18:06)
[2025-05-28] MEDS: CEFTRIAXONE 1GM/50ML 50 ML IV SCH (18:42)
[2025-05-28 19:04] LABS: BG BASE EXCESS 8.9 mmol/L (-2.0-3.0); BG CARBOXYHEMOGLOBIN 0.4 % (0.5-1.5); BG DEOXYHEMOGLOBIN 4.1 % (0.0-5.0); BG FRACTION INSPIRED OXYGEN 50; BG HCO3 ACT 32.8 mmol/L (21.0-28.0); BG METHEMOGLOBIN 0.3 % (0.5-1.5); BG OXYGEN SATURATION 95.9 % (94.0-98.0); BG OXYHEMOGLOBIN 95.2 % (94.0-98.0); BG PCO2 42.0 mmHg (35.0-48.0); BG PEEP (cmH2O) 5.0 cmH2O; BG PH 7.510 (7.350-7.450); BG PO2 66.3 mmHg (83.0-108.0); BG SAMPLE SITE RIGHT RADIAL; BG TIDAL VOLUME(mL) 450.0 mL; BG TOTAL HEMOGLOBIN 13.4 g/dL (13.5-17.5); BG VENT MODE VENT - AC; BG VENT RATE 24.0 set
[2025-05-28] MEDS: IPRATROPIUM/ALBUTEROL 0.5-3(2.5)MG/3ML NEB HHN SCH (20:56)
[2025-05-28] MEDS: PROPOFOL 10MG/ML 100ML 100 ML IV PRN (21:15)
[2025-05-28] MEDS: LEVETIRACETAM 500MG/5ML CUP PO SCH (21:18)
[2025-05-28] MEDS: LACOSAMIDE 100MG/10ML ORAL SOLN GT SCH (21:50)
[2025-05-28] MEDS: LACTATED RINGERS 500 ML IV SCH (23:13)
[2025-05-29] VITALS (106 sets, daily range): BP systolic 75–143; BP diastolic 61–104; PULSE 90–118; RESP 11–27; TEMP 36.4–37.3; O2SAT 11–100
[2025-05-29] MEDS: PHENYLEPHRINE 50MG/250ML PMX 250 ML IV PRN (02:03)
[2025-05-29 06:33] LABS: BASOPHILS % 0.3 % (0.0-2.0); EOSINOPHILS % 0.0 % (0.0-5.0); HEMATOCRIT. 38.6 % (42.0-52.0); HEMOGLOBIN. 12.5 g/dL (14.0-18.0); LYMPHOCYTES % 12.6 % (20.0-50.0); MEAN PLATELET VOLUME 8.7 fl (7.4-10.4); MONOCYTES % 8.3 % (2.0-8.0); NEUTROPHILS % 78.8 % (40.0-76.0); PLATELET 394 x1000/uL (130-400); RED BLOOD CELL COUNT 4.40 mill/uL (4.7-6.1); RED CELL DISTRIBUTION WIDTH 13.3 % (11.6-14.6)
[2025-05-29 06:55] LABS: CREATININE 0.6 mg/dL (0.6-1.3); TRIGLYCERIDE 113 mg/dL (0-150); UREA NITROGEN BLOOD 23 mg/dL (9-23)
[2025-05-29] MEDS: PANTOPRAZOLE SODIUM 40 MG/VIAL IV SCH (08:08)
[2025-05-29] MEDS: AMLODIPINE 5MG TABLET PO SCH (08:09)
[2025-05-29 08:23] LABS: *AMPHETAMINES SCREEN URINE NEGATIVE (NEGATIVE); *BARBITURATES SCREEN URINE NEGATIVE (NEGATIVE); *BENZODIAZEPINES SCREEN URINE NEGATIVE (NEGATIVE); *COCAINE SCREEN URINE NEGATIVE (NEGATIVE); METHADONE URINE SCREEN NEGATIVE (NEGATIVE); OPIATES URINE SCREEN NEGATIVE (NEGATIVE)
[2025-05-29 08:25] LABS: CANNABINOID URINE SCREEN PRESUMPTIVE POSITIVE (NEGATIVE); PHENCYCLIDINE URINE SCREEN NEGATIVE (NEGATIVE)
[2025-05-29 08:26] LABS: ECSTASY MDMA SCREEN URINE NEGATIVE (NEGATIVE)
[2025-05-29] MEDS ORDERED: AZITHROMYCIN 500MG/250ML 250 ML IV SCH (09:00)
[2025-05-29] MEDS ORDERED: ERGOCALCIFEROL 50000UNITS CAPSULE PO SCH (09:00)
[2025-05-29 09:29] LABS: BG BASE EXCESS 9.6 mmol/L (-2.0-3.0); BG CARBOXYHEMOGLOBIN 1.6 % (0.5-1.5); BG DEOXYHEMOGLOBIN 3.2 % (0.0-5.0); BG FRACTION INSPIRED OXYGEN 50; BG HCO3 ACT 31.9 mmol/L (21.0-28.0); BG METHEMOGLOBIN 0.0 % (0.5-1.5); BG OXYGEN SATURATION 96.7 % (94.0-98.0); BG OXYHEMOGLOBIN 95.2 % (94.0-98.0); BG PCO2 35.0 mmHg (35.0-48.0); BG PEEP (cmH2O) 5.0 cmH2O; BG PH 7.578 (7.350-7.450); BG PO2 73.3 mmHg (83.0-108.0); BG SAMPLE SITE RIGHT RADIAL; BG TIDAL VOLUME(mL) 450.0 mL; BG TOTAL HEMOGLOBIN 12.6 g/dL (13.5-17.5); BG VENT MODE VENT - AC; BG VENT RATE 24.0 set
[2025-05-29] MEDS: AZITHROMYCIN 500MG/250ML 250 ML IV SCH (10:04)
[2025-05-29 14:27] LABS: BG BASE EXCESS 8.0 mmol/L (-2.0-3.0); BG CARBOXYHEMOGLOBIN 0.5 % (0.5-1.5); BG DEOXYHEMOGLOBIN 0.7 % (0.0-5.0); BG FRACTION INSPIRED OXYGEN 50; BG HCO3 ACT 31.0 mmol/L (21.0-28.0); BG METHEMOGLOBIN 0.3 % (0.5-1.5); BG OXYGEN SATURATION 99.3 % (94.0-98.0); BG OXYHEMOGLOBIN 98.5 % (94.0-98.0); BG PCO2 37.4 mmHg (35.0-48.0); BG PEEP (cmH2O) 5.0 cmH2O; BG PH 7.537 (7.350-7.450); BG PO2 156.4 mmHg (83.0-108.0); BG SAMPLE SITE RIGHT BRACHIAL; BG TIDAL VOLUME(mL) 450.0 mL; BG TOTAL HEMOGLOBIN 12.6 g/dL (13.5-17.5); BG VENT MODE VENT - AC; BG VENT RATE 16.0 set
[2025-05-29 16:56] LABS: BG BASE EXCESS 8.8 mmol/L (-2.0-3.0); BG CARBOXYHEMOGLOBIN 0.3 % (0.5-1.5); BG DEOXYHEMOGLOBIN 2.0 % (0.0-5.0); BG FRACTION INSPIRED OXYGEN 50; BG HCO3 ACT 32.2 mmol/L (21.0-28.0); BG METHEMOGLOBIN 0.3 % (0.5-1.5); BG OXYGEN SATURATION 98.0 % (94.0-98.0); BG OXYHEMOGLOBIN 97.4 % (94.0-98.0); BG PCO2 39.9 mmHg (35.0-48.0); BG PEEP (cmH2O) 5.0 cmH2O; BG PH 7.525 (7.350-7.450); BG PO2 97.8 mmHg (83.0-108.0); BG SAMPLE SITE RIGHT BRACHIAL; BG TOTAL HEMOGLOBIN 12.6 g/dL (13.5-17.5); BG VENT MODE VENT - CPAP
[2025-05-30] VITALS (76 sets, daily range): BP systolic 103–145; BP diastolic 74–109; PULSE 90–123; RESP 16–26; TEMP 36.4–36.8; O2SAT 92–100
[2025-05-30 06:59] LABS: CREATININE 0.5 mg/dL (0.6-1.3); UREA NITROGEN BLOOD 18 mg/dL (9-23)
[2025-05-30] MEDS: RACEPINEPHRINE 2.25% 0.5ML NEB VIAL HHN PRN (08:07)
[2025-05-30] MEDS: ENOXAPARIN 40MG/0.4ML SYR SUBCUT SCH (08:09)
[2025-05-30 08:44] LABS: BG BASE EXCESS 5.6 mmol/L (-2.0-3.0); BG CARBOXYHEMOGLOBIN 0.8 % (0.5-1.5); BG DEOXYHEMOGLOBIN 0.9 % (0.0-5.0); BG FRACTION INSPIRED OXYGEN 50; BG HCO3 ACT 31.1 mmol/L (21.0-28.0); BG METHEMOGLOBIN 0.1 % (0.5-1.5); BG OXYGEN SATURATION 99.1 % (94.0-98.0); BG OXYHEMOGLOBIN 98.2 % (94.0-98.0); BG PCO2 48.3 mmHg (35.0-48.0); BG PH 7.426 (7.350-7.450); BG PO2 145.4 mmHg (83.0-108.0); BG SAMPLE SITE RIGHT RADIAL; BG TOTAL HEMOGLOBIN 13.4 g/dL (13.5-17.5); BG TOTAL RESPIRATORY RATE 21 b/min; BG VENT MODE MASK - BIPAP; BG VENT RATE 15.0 set
[2025-05-30] MEDS: METHYLPREDNISOLONE SOD SUCC 125MG/2ML (ACT-O-VIAL) IV SCH (15:00)
[2025-05-31] VITALS (13 sets, daily range): BP systolic 110–139; BP diastolic 63–91; PULSE 93–112; RESP 18–25; TEMP 36.4–36.9; O2SAT 97–100
[2025-05-31] MEDS ORDERED: LORAZEPAM 0.5MG TABLET PO NR (12:00)
[2025-05-31] MEDS: AZITHROMYCIN 500 MG TABLET PO SCH (14:06)
[2025-05-31] MEDS: BUDESONIDE 0.5MG/2ML NEB HHN SCH (20:57)
[2025-06-01] VITALS (13 sets, daily range): BP systolic 103–139; BP diastolic 59–89; PULSE 95–112; RESP 15–28; TEMP 36.2–36.6; O2SAT 19–100
[2025-06-01 07:48] LABS: CREATININE 0.5 mg/dL (0.6-1.3); UREA NITROGEN BLOOD 9 mg/dL (9-23)
[2025-06-01] MEDS: CEFTRIAXONE 1GM/50ML 50 ML IV SCH (10:55)
[2025-06-01] MEDS: METHYLPREDNISOLONE SOD SUCC 125MG/2ML (ACT-O-VIAL) IV SCH (11:38)
[2025-06-01 13:42] LABS: PLATELET 348 x1000/uL (130-400); RED BLOOD CELL COUNT 3.99 mill/uL (4.7-6.1); RED CELL DISTRIBUTION WIDTH 13.4 % (11.6-14.6)
[2025-06-01] MEDS: SODIUM ZIRCONIUM CYCLOSILICATE 10GM/PACKET PO SCH (14:20)
[2025-06-01] MEDS: METHYLPREDNISOLONE SOD SUCC 40MG/ML (ACT-O-VIAL) IV SCH (22:28)
[2025-06-02] VITALS (13 sets, daily range): BP systolic 108–143; BP diastolic 64–92; PULSE 99–113; RESP 15–21; TEMP 36.1–36.7; O2SAT 97–100
[2025-06-02 12:16] LABS: HEMATOCRIT. 38.8 % (42.0-52.0); HEMOGLOBIN. 12.4 g/dL (14.0-18.0); MEAN PLATELET VOLUME 8.8 fl (7.4-10.4); PLATELET 353 x1000/uL (130-400); RED BLOOD CELL COUNT 4.39 mill/uL (4.7-6.1); RED CELL DISTRIBUTION WIDTH 13.5 % (11.6-14.6)
[2025-06-02 13:34] LABS: CREATININE 0.5 mg/dL (0.6-1.3)
[2025-06-02 13:35] LABS: UREA NITROGEN BLOOD 10 mg/dL (9-23)
[2025-06-02 17:06] LABS: LYMPHOCYTES % MANUAL 5.0 % (20.0-50.0); MONOCYTES % MANUAL 4.0 % (2.0-8.0); NEUTROPHILS % MANUAL 91.0 % (45.0-75.0); PLATELET ESTIMATE NORMAL
[2025-06-03] VITALS (13 sets, daily range): BP systolic 106–179; BP diastolic 80–94; PULSE 76–113; RESP 18–24; TEMP 36.1–36.7; O2SAT 96–100
[2025-06-03 08:42] LABS: BG BASE EXCESS 9.7 mmol/L (-2.0-3.0); BG CARBOXYHEMOGLOBIN 0.3 % (0.5-1.5); BG DEOXYHEMOGLOBIN 4.0 % (0.0-5.0); BG FLOW(L/min) 3.00 L/min; BG FRACTION INSPIRED OXYGEN 32; BG HCO3 ACT 37.5 mmol/L (21.0-28.0); BG METHEMOGLOBIN 0.3 % (0.5-1.5); BG OXYGEN SATURATION 96.0 % (94.0-98.0); BG OXYHEMOGLOBIN 95.4 % (94.0-98.0); BG PCO2 67.2 mmHg (35.0-48.0); BG PH 7.365 (7.350-7.450); BG PO2 79.3 mmHg (83.0-108.0); BG SAMPLE SITE RIGHT BRACHIAL; BG TOTAL HEMOGLOBIN 12.8 g/dL (13.5-17.5); BG VENT MODE NASAL CANNULA
[2025-06-03] MEDS ORDERED: ERGOCALCIFEROL 50000UNITS CAPSULE PO SCH (09:00)
[2025-06-03] MEDS: METHYLPREDNISOLONE SOD SUCC 40MG/ML (ACT-O-VIAL) IV SCH (09:18)
[2025-06-03] MEDS: ACETAMINOPHEN 325MG TABLET PO PRN (11:09)
[2025-06-03] MEDS ORDERED: IPRATROPIUM BROMIDE (0.02%) 0.5MG/2.5ML NEB HHN SCH (11:45)
[2025-06-03] MEDS: METHYLPREDNISOLONE SOD SUCC 40MG/ML (ACT-O-VIAL) IV NR (13:11)
[2025-06-03] MEDS: IPRATROPIUM/ALBUTEROL 0.5-3(2.5)MG/3ML NEB HHN SCH ×2 (13:13→16:03)
[2025-06-03] MEDS: METHYLPREDNISOLONE SOD SUCC 125MG/2ML (ACT-O-VIAL) IV SCH (17:07)
[2025-06-03 17:43] LABS: BG BASE EXCESS 13.8 mmol/L (-2.0-3.0); BG CARBOXYHEMOGLOBIN 0.6 % (0.5-1.5); BG DEOXYHEMOGLOBIN 0.7 % (0.0-5.0); BG FRACTION INSPIRED OXYGEN 50; BG HCO3 ACT 42.3 mmol/L (21.0-28.0); BG METHEMOGLOBIN 0.1 % (0.5-1.5); BG OXYGEN SATURATION 99.3 % (94.0-98.0); BG OXYHEMOGLOBIN 98.6 % (94.0-98.0); BG PCO2 75.0 mmHg (35.0-48.0); BG PH 7.369 (7.350-7.450); BG PO2 162.3 mmHg (83.0-108.0); BG SAMPLE SITE LEFT BRACHIAL; BG TOTAL HEMOGLOBIN 12.3 g/dL (13.5-17.5); BG TOTAL RESPIRATORY RATE 25 b/min; BG VENT MODE MASK - BIPAP; BG VENT RATE 15.0 set
[2025-06-03] MEDS ORDERED: IPRATROPIUM/ALBUTEROL 0.5-3(2.5)MG/3ML NEB HHN PRN (18:00)
[2025-06-04] VITALS (7 sets, daily range): BP systolic 117–145; BP diastolic 88–95; PULSE 93–107; RESP 19–29; TEMP 36.8–36.9; O2SAT 98–100
[2025-06-04 07:13] LABS: CREATININE 0.4 mg/dL (0.6-1.3)
[2025-06-04 07:15] LABS: UREA NITROGEN BLOOD 12 mg/dL (9-23)
[2025-06-04 09:19] LABS: BG BASE EXCESS 13.1 mmol/L (-2.0-3.0); BG CARBOXYHEMOGLOBIN 0.3 % (0.5-1.5); BG DEOXYHEMOGLOBIN 2.3 % (0.0-5.0); BG FLOW(L/min) 2.50 L/min; BG FRACTION INSPIRED OXYGEN 30; BG HCO3 ACT 39.7 mmol/L (21.0-28.0); BG METHEMOGLOBIN 0.3 % (0.5-1.5); BG OXYGEN SATURATION 97.7 % (94.0-98.0); BG OXYHEMOGLOBIN 97.1 % (94.0-98.0); BG PCO2 59.9 mmHg (35.0-48.0); BG PH 7.439 (7.350-7.450); BG PO2 90.7 mmHg (83.0-108.0); BG SAMPLE SITE RIGHT RADIAL; BG TOTAL HEMOGLOBIN 12.3 g/dL (13.5-17.5); BG VENT MODE NASAL CANNULA
== END 2025-06-04 09:25 | disposition left against medical advice (07) | DRG 720 ==
LOC: ER 10:00 → 5EST 12:04 → EDBEDREQ 12:08 → EDBEDREQTM 12:08 → EDBEDREQSVC 12:59 → ENRESERV 14:33 → CVICU 17:40 → 8WST 05-30 17:19 → 5EST 06-03 18:44
PROVIDERS: ADMIT Internal Medicine; ATTEND Internal Medicine
PROC: 5A09357 Assistance with Respiratory Ventilation, Less than 24 Consecutive Hours, Continuous Positive Airway Pressure (ICD-10-PCS; principal; 2025-05-28)
PROC: 5A1935Z Respiratory Ventilation, Less than 24 Consecutive Hours (ICD-10-PCS; 2025-05-28)
PROC: 0BH17EZ Insertion of Endotracheal Airway into Trachea, Via Natural or Artificial Opening (ICD-10-PCS; 2025-05-28)
PROC: 5A09357 Assistance with Respiratory Ventilation, Less than 24 Consecutive Hours, Continuous Positive Airway Pressure (ICD-10-PCS; 2025-05-29)
PROC: 5A09357 Assistance with Respiratory Ventilation, Less than 24 Consecutive Hours, Continuous Positive Airway Pressure (ICD-10-PCS; 2025-05-30)
PROC: 5A09357 Assistance with Respiratory Ventilation, Less than 24 Consecutive Hours, Continuous Positive Airway Pressure (ICD-10-PCS; 2025-05-31)
PROC: 5A09357 Assistance with Respiratory Ventilation, Less than 24 Consecutive Hours, Continuous Positive Airway Pressure (ICD-10-PCS; 2025-06-03)
DX: A41.9 Sepsis, unspecified organism (principal); J96.02 Acute respiratory failure with hypercapnia; J96.22 Acute and chronic respiratory failure with hypercapnia; J96.01 Acute respiratory failure with hypoxia; G93.41 Metabolic encephalopathy; E11.621 Type 2 diabetes mellitus with foot ulcer; D64.9 Anemia, unspecified; J96.21 Acute and chronic respiratory failure with hypoxia; J44.1 Chronic obstructive pulmonary disease with (acute) exacerbation; I50.32 Chronic diastolic (congestive) heart failure; I11.0 Hypertensive heart disease with heart failure; E87.1 Hypo-osmolality and hyponatremia; E87.5 Hyperkalemia; L97.529 Non-pressure chronic ulcer of other part of left foot with unspecified severity; G40.909 Epilepsy, unspecified, not intractable, without status epilepticus; F12.90 Cannabis use, unspecified, uncomplicated; E87.29 Other acidosis; F17.210 Nicotine dependence, cigarettes, uncomplicated; J98.11 Atelectasis; Z99.81 Dependence on supplemental oxygen; Z79.899 Other long term (current) drug therapy; Z88.8 Allergy status to other drugs, medicaments and biological substances
CPT/HCPCS: 31500; 31720; 36415; 36600; 71045; 80048; 80076; 80305; 80339; 82375; 82805; 83880; 84132; 84145; 84478; 84484; 85025; 85027; 87070; 93005; 94002; 94003; 94070; 94640; 94660; 94664; 99291; A4606; J0456; J0696; J1650; J2371; J2470; J2704; J2919; J3490; J7626

== ENCOUNTER 2025-06-18 05:18 | Inpatient (IN) | payer MEDICAID ==
[2025-06-18] VITALS (62 sets, daily range): BP systolic 68–107; BP diastolic 52–89; PULSE 84–108; RESP 18–29; TEMP 36.3068–36.7; O2SAT 97–100
[~2025-06-18] VITALS: Ht 172.7 cm; Wt 68.1 kg
[~2025-06-18 05:18] MED LIST changes: -DEX4 MT; +METH4TAB95 MT
[2025-06-18] MEDS: ALBUTEROL (0.083%) 2.5MG/3ML NEB HHN SCH (05:25)
[2025-06-18] MEDS: IPRATROPIUM BROMIDE (0.02%) 0.5MG/2.5ML NEB HHN SCH ×2 (05:25→08:30)
[2025-06-18 05:57] LABS: HEMATOCRIT. 38.1 % (42.0-52.0); HEMOGLOBIN. 12.0 g/dL (14.0-18.0); MEAN PLATELET VOLUME 8.1 fl (7.4-10.4); PLATELET 273 x1000/uL (130-400); RED BLOOD CELL COUNT 4.26 mill/uL (4.7-6.1); RED CELL DISTRIBUTION WIDTH 14.0 % (11.6-14.6)
[2025-06-18 06:06] LABS: UREA NITROGEN BLOOD 12 mg/dL (9-23)
[2025-06-18 06:08] LABS: CREATININE 0.3 mg/dL (0.6-1.3); TROPONIN I HIGH SENSITIVITY 14 ng/L (3.0-53)
[2025-06-18] MEDS: METHYLPREDNISOLONE SOD SUCC 125MG/2ML (ACT-O-VIAL) IV ONE (06:43)
[2025-06-18] MEDS: AZITHROMYCIN 500MG/250ML 250 ML IV STA (06:43)
[2025-06-18 07:12] LABS: BG BASE EXCESS 12.1 mmol/L (-2.0-3.0); BG CARBOXYHEMOGLOBIN 0.2 % (0.5-1.5); BG DEOXYHEMOGLOBIN 1.7 % (0.0-5.0); BG FRACTION INSPIRED OXYGEN 50; BG HCO3 ACT 46.2 mmol/L (21.0-28.0); BG METHEMOGLOBIN 0.0 % (0.5-1.5); BG OXYGEN SATURATION 98.3 % (94.0-98.0); BG OXYHEMOGLOBIN 98.1 % (94.0-98.0); BG PCO2 145.8 mmHg (35.0-48.0); BG PH 7.119 (7.350-7.450); BG PO2 135.3 mmHg (83.0-108.0); BG SAMPLE SITE LEFT RADIAL; BG TOTAL HEMOGLOBIN 11.9 g/dL (13.5-17.5); BG VENT MODE MASK - BIPAP; BG VENT RATE 18.0 set
[2025-06-18] MEDS ORDERED: NOREPINEPHRINE 8MG/250ML PMX 250 ML IV PRN (07:30)
[2025-06-18] MEDS: KETAMINE HCL 50 MG/ML 10ML IV ONE (07:31)
[2025-06-18] MEDS: PROPOFOL 10MG/ML 100ML 100 ML IV SCH (07:41)
[2025-06-18] MEDS: NOREPINEPHRINE 8MG/250ML PMX 250 ML IV PRN (07:44)
[2025-06-18] MEDS ORDERED: IPRATROPIUM BROMIDE (0.02%) 0.5MG/2.5ML NEB HHN PRN (08:30)
[2025-06-18] MEDS ORDERED: ACETAMINOPHEN 650MG/20.3ML UDC GT PRN (08:30)
[2025-06-18] MEDS ORDERED: GUAIFENESIN 200MG/10ML SUGAR FREE UDC PO PRN (08:30)
[2025-06-18] MEDS ORDERED: ONDANSETRON HCL 4MG/2ML INJ IV PRN (08:30)
[2025-06-18] MEDS ORDERED: CLONIDINE 0.1MG TABLET PO PRN (08:30)
[2025-06-18] MEDS ORDERED: ACETAMINOPHEN 325MG TABLET PO PRN (08:30)
[2025-06-18] MEDS ORDERED: LORAZEPAM 2MG/ML UD SYRINGE IV PRN (08:45)
[2025-06-18 09:50] LABS: BAND% 29.0 % (1.0-6.0); LYMPHOCYTES % MANUAL 7.0 % (20.0-50.0); MONOCYTES % MANUAL 3.0 % (2.0-8.0); NEUTROPHILS % MANUAL 61.0 % (45.0-75.0); PLATELET ESTIMATE NORMAL
[2025-06-18] MEDS: PANTOPRAZOLE SODIUM 40 MG/VIAL IV SCH (09:53)
[2025-06-18] MEDS ORDERED: FENTANYL CITRATE/PF 2,500 MCG in SODIUM CHLORIDE 0.9% 200 ML IV PRN (10:00)
[2025-06-18 10:06] LABS: TROPONIN I HIGH SENSITIVITY 15 ng/L (3.0-53)
[2025-06-18 10:23] LABS: PHOSPHORUS 2.9 mg/dL (2.5-4.9)
[2025-06-18] MEDS ORDERED: LIDOCAINE HCL 1% 10 MG/ML 10ML VIAL ONE (10:44)
[2025-06-18 12:30] LABS: CREATINE KINASE MB FRACTION 6.5 ng/mL (0.5-3.6)
[2025-06-18] MEDS: LEVETIRACETAM 2,000 MG in SODIUM CHLORIDE 0.9% 100 ML IV SCH (12:30)
[2025-06-18] MEDS: FENTANYL CITRATE/PF 2,500 MCG in SODIUM CHLORIDE 0.9% 200 ML IV PRN (12:31)
[2025-06-18] MEDS: ENOXAPARIN 40MG/0.4ML SYR SUBCUT SCH (12:31)
[2025-06-18 12:57] LABS: BG BASE EXCESS 11.9 mmol/L (-2.0-3.0); BG CARBOXYHEMOGLOBIN 0.3 % (0.5-1.5); BG DEOXYHEMOGLOBIN 7.5 % (0.0-5.0); BG FRACTION INSPIRED OXYGEN 50; BG HCO3 ACT 33.7 mmol/L (21.0-28.0); BG METHEMOGLOBIN 0.3 % (0.5-1.5); BG OXYGEN SATURATION 92.5 % (94.0-98.0); BG OXYHEMOGLOBIN 91.9 % (94.0-98.0); BG PCO2 33.5 mmHg (35.0-48.0); BG PEEP (cmH2O) 5.0 cmH2O; BG PH 7.621 (7.350-7.450); BG PO2 46.5 mmHg (83.0-108.0); BG SAMPLE SITE RIGHT BRACHIAL; BG TIDAL VOLUME(mL) 450.0 mL; BG TOTAL HEMOGLOBIN 11.0 g/dL (13.5-17.5); BG VENT MODE VENT - AC; BG VENT RATE 28.0 set
[2025-06-18] MEDS ORDERED: PHENYLEPHRINE 50 MG in DEXT 5% WATER 245 ML IV PRN (14:00)
[2025-06-18] MEDS: PIPERACILLIN/TAZO 3.375G/50ML 50 ML IV SCH (14:47)
[2025-06-18] MEDS: METHYLPREDNISOLONE SOD SUCC 125MG/2ML (ACT-O-VIAL) IV SCH (14:47)
[2025-06-18] MEDS: TAMSULOSIN HCL 0.4MG SR CAPSULE PO SCH (16:45)
[2025-06-18 16:47] LABS: BG BASE EXCESS 10.5 mmol/L (-2.0-3.0); BG CARBOXYHEMOGLOBIN 0.1 % (0.5-1.5); BG DEOXYHEMOGLOBIN 0.5 % (0.0-5.0); BG FRACTION INSPIRED OXYGEN 60; BG HCO3 ACT 33.6 mmol/L (21.0-28.0); BG METHEMOGLOBIN 0.1 % (0.5-1.5); BG OXYGEN SATURATION 99.5 % (94.0-98.0); BG OXYHEMOGLOBIN 99.3 % (94.0-98.0); BG PCO2 38.7 mmHg (35.0-48.0); BG PEEP (cmH2O) 5.0 cmH2O; BG PH 7.556 (7.350-7.450); BG PO2 165.1 mmHg (83.0-108.0); BG SAMPLE SITE RIGHT BRACHIAL; BG TIDAL VOLUME(mL) 450.0 mL; BG TOTAL HEMOGLOBIN 10.9 g/dL (13.5-17.5); BG VENT MODE VENT - AC; BG VENT RATE 20.0 set
[2025-06-18 16:52] LABS: TROPONIN I HIGH SENSITIVITY 7 ng/L (3.0-53)
[2025-06-18] MEDS: PROPOFOL 10MG/ML 100ML 100 ML IV PRN (19:58)
[2025-06-18 23:10] LABS: CLARITY URINE CLOUDY (CLEAR); COLOR URINE YELLOW (YELLOW); GLUCOSE URINE NEGATIVE (NEGATIVE); KETONES URINE NEGATIVE (NEGATIVE); NITRITE URINE NEGATIVE (NEGATIVE); OCCULT BLOOD URINE TRACE (NEGATIVE); PH URINE 8.5 (4.5-8.0); PROTEIN URINE TRACE (NEGATIVE); SPECIFIC GRAVITY URINE 1.021 (1.005-1.030)
[2025-06-18 23:11] LABS: LEUKOCYTE ESTERASE URINE NEGATIVE (NEGATIVE); UROBILINOGEN URINE 0.2 E.U./dL (0.2-1.0)
[2025-06-18 23:15] LABS: *AMPHETAMINES SCREEN URINE NEGATIVE (NEGATIVE); *BARBITURATES SCREEN URINE NEGATIVE (NEGATIVE); *BENZODIAZEPINES SCREEN URINE NEGATIVE (NEGATIVE); *COCAINE SCREEN URINE NEGATIVE (NEGATIVE); BACTERIA URINE 4+; CANNABINOID URINE SCREEN NEGATIVE (NEGATIVE); ECSTASY MDMA SCREEN URINE NEGATIVE (NEGATIVE); METHADONE URINE SCREEN NEGATIVE (NEGATIVE); OPIATES URINE SCREEN NEGATIVE (NEGATIVE); PHENCYCLIDINE URINE SCREEN NEGATIVE (NEGATIVE); SQUAMOUS EPITHELIAL CELL URINE FEW /lpf (RARE/1+)
[2025-06-18 23:16] LABS: AMORPHOUS SEDIMENT URINE 1+ /lpf; WBC URINE 0-2 /hpf (0-2)
[2025-06-19] VITALS (100 sets, daily range): BP systolic 73–119; BP diastolic 60–87; PULSE 72–105; RESP 12–27; TEMP 36.4–37.1; O2SAT 58–100
[2025-06-19 05:27] LABS: HEMATOCRIT. 29.1 % (42.0-52.0); HEMOGLOBIN. 9.6 g/dL (14.0-18.0); MEAN PLATELET VOLUME 8.4 fl (7.4-10.4); PLATELET 244 x1000/uL (130-400); RED BLOOD CELL COUNT 3.35 mill/uL (4.7-6.1); RED CELL DISTRIBUTION WIDTH 14.0 % (11.6-14.6)
[2025-06-19] MEDS: AZITHROMYCIN 500MG/250ML 250 ML IV SCH (05:41)
[2025-06-19 05:57] LABS: TRIGLYCERIDE 289 mg/dL (0-150); UREA NITROGEN BLOOD 21 mg/dL (9-23)
[2025-06-19] MEDS ORDERED: AZITHROMYCIN 500MG/250ML 250 ML IV SCH (06:00)
[2025-06-19 06:03] LABS: T4 FREE 1.52 ng/dL (0.89-1.76)
[2025-06-19 06:08] LABS: CREATININE 0.5 mg/dL (0.6-1.3)
[2025-06-19 08:26] LABS: BG BASE EXCESS 10.1 mmol/L (-2.0-3.0); BG CARBOXYHEMOGLOBIN 0.2 % (0.5-1.5); BG DEOXYHEMOGLOBIN 2.7 % (0.0-5.0); BG FRACTION INSPIRED OXYGEN 30; BG HCO3 ACT 33.9 mmol/L (21.0-28.0); BG METHEMOGLOBIN 0.0 % (0.5-1.5); BG OXYGEN SATURATION 97.3 % (94.0-98.0); BG OXYHEMOGLOBIN 97.1 % (94.0-98.0); BG PCO2 42.3 mmHg (35.0-48.0); BG PEEP (cmH2O) 5.0 cmH2O; BG PH 7.522 (7.350-7.450); BG PO2 91.0 mmHg (83.0-108.0); BG SAMPLE SITE RIGHT BRACHIAL; BG TIDAL VOLUME(mL) 450.0 mL; BG TOTAL HEMOGLOBIN 10.5 g/dL (13.5-17.5); BG VENT MODE VENT - AC; BG VENT RATE 18.0 set
[2025-06-19] MEDS: TAMSULOSIN HCL 0.4MG SR CAPSULE PO SCH (09:03)
[2025-06-19] MEDS: NOREPINEPHRINE 8MG/250ML PMX 250 ML IV PRN (12:32)
[2025-06-19] MEDS: DEXT 5%/0.9% NACL 1,000 ML IV SCH (15:30)
[2025-06-19] MEDS ORDERED: PROPOFOL 10MG/ML 100ML 100 ML IV PRN (16:45)
[2025-06-19 16:51] LABS: BG BASE EXCESS 10.9 mmol/L (-2.0-3.0); BG CARBOXYHEMOGLOBIN 0.1 % (0.5-1.5); BG DEOXYHEMOGLOBIN 1.7 % (0.0-5.0); BG FRACTION INSPIRED OXYGEN 40; BG HCO3 ACT 35.7 mmol/L (21.0-28.0); BG METHEMOGLOBIN 0.3 % (0.5-1.5); BG OXYGEN SATURATION 98.3 % (94.0-98.0); BG OXYHEMOGLOBIN 97.9 % (94.0-98.0); BG PCO2 48.3 mmHg (35.0-48.0); BG PEEP (cmH2O) 5.0 cmH2O; BG PH 7.486 (7.350-7.450); BG PO2 108.7 mmHg (83.0-108.0); BG SAMPLE SITE RIGHT RADIAL; BG TIDAL VOLUME(mL) 450.0 mL; BG TOTAL HEMOGLOBIN 10.8 g/dL (13.5-17.5); BG VENT MODE VENT - AC; BG VENT RATE 16.0 set
[2025-06-19] MEDS: PROPOFOL 10MG/ML 100ML 100 ML IV PRN (18:02)
[2025-06-20] VITALS (76 sets, daily range): BP systolic 93–129; BP diastolic 60–102; PULSE 66–119; RESP 10–27; TEMP 36.7–37.1; O2SAT 93–100
[2025-06-20] MEDS: LEVETIRACETAM 2,000 MG in SODIUM CHLORIDE 0.9% 100 ML IV SCH ×2 (00:43→01:00)
[2025-06-20 06:19] LABS: PLATELET 270 x1000/uL (130-400); RED BLOOD CELL COUNT 3.16 mill/uL (4.7-6.1); RED CELL DISTRIBUTION WIDTH 14.4 % (11.6-14.6)
[2025-06-20 08:31] LABS: BG BASE EXCESS 4.3 mmol/L (-2.0-3.0); BG CARBOXYHEMOGLOBIN 0.3 % (0.5-1.5); BG DEOXYHEMOGLOBIN 1.1 % (0.0-5.0); BG FRACTION INSPIRED OXYGEN 40; BG HCO3 ACT 28.5 mmol/L (21.0-28.0); BG METHEMOGLOBIN 0.1 % (0.5-1.5); BG OXYGEN SATURATION 98.9 % (94.0-98.0); BG OXYHEMOGLOBIN 98.5 % (94.0-98.0); BG PCO2 41.2 mmHg (35.0-48.0); BG PEEP (cmH2O) 5.0 cmH2O; BG PH 7.458 (7.350-7.450); BG PO2 141.5 mmHg (83.0-108.0); BG SAMPLE SITE RIGHT RADIAL; BG TIDAL VOLUME(mL) 450.0 mL; BG TOTAL HEMOGLOBIN 9.7 g/dL (13.5-17.5); BG VENT MODE VENT - AC; BG VENT RATE 16.0 set
[2025-06-20] MEDS: MIDODRINE HCL 5MG TABLET PO SCH (09:12)
[2025-06-20] MEDS: FINASTERIDE 5MG TABLET NG SCH (09:15)
[2025-06-20 09:23] LABS: BAND% 9.0 % (1.0-6.0); LYMPHOCYTES % MANUAL 12.0 % (20.0-50.0); NEUTROPHILS % MANUAL 79.0 % (45.0-75.0); PLATELET ESTIMATE NORMAL
[2025-06-20 09:26] LABS: CREATININE 0.4 mg/dL (0.6-1.3); TRIGLYCERIDE 86 mg/dL (0-150); UREA NITROGEN BLOOD 14 mg/dL (9-23)
[2025-06-20 10:17] LABS: BG BASE EXCESS 7.4 mmol/L (-2.0-3.0); BG CARBOXYHEMOGLOBIN 0.3 % (0.5-1.5); BG DEOXYHEMOGLOBIN 10.3 % (0.0-5.0); BG FRACTION INSPIRED OXYGEN 40; BG HCO3 ACT 31.5 mmol/L (21.0-28.0); BG METHEMOGLOBIN 0.1 % (0.5-1.5); BG OXYGEN SATURATION 89.7 % (94.0-98.0); BG OXYHEMOGLOBIN 89.3 % (94.0-98.0); BG PCO2 42.7 mmHg (35.0-48.0); BG PEEP (cmH2O) 5.0 cmH2O; BG PH 7.486 (7.350-7.450); BG PO2 55.4 mmHg (83.0-108.0); BG SAMPLE SITE RIGHT RADIAL; BG TOTAL HEMOGLOBIN 10.4 g/dL (13.5-17.5); BG VENT MODE VENT - CPAP
[2025-06-20 16:13] LABS: CREATININE 0.4 mg/dL (0.6-1.3)
[2025-06-20 16:14] LABS: UREA NITROGEN BLOOD 12 mg/dL (9-23)
[2025-06-21] VITALS (41 sets, daily range): BP systolic 107–133; BP diastolic 65–94; PULSE 78–107; RESP 14–33; TEMP 36.3–37.1; O2SAT 93–100
[2025-06-21 07:12] LABS: PLATELET 220 x1000/uL (130-400); RED BLOOD CELL COUNT 3.20 mill/uL (4.7-6.1); RED CELL DISTRIBUTION WIDTH 14.5 % (11.6-14.6)
[2025-06-21 10:28] LABS: BG BASE EXCESS 4.5 mmol/L (-2.0-3.0); BG CARBOXYHEMOGLOBIN 0.3 % (0.5-1.5); BG DEOXYHEMOGLOBIN 5.0 % (0.0-5.0); BG FLOW(L/min) 1.00 L/min; BG FRACTION INSPIRED OXYGEN 24; BG HCO3 ACT 30.3 mmol/L (21.0-28.0); BG METHEMOGLOBIN 0.0 % (0.5-1.5); BG OXYGEN SATURATION 95.0 % (94.0-98.0); BG OXYHEMOGLOBIN 94.7 % (94.0-98.0); BG PCO2 50.7 mmHg (35.0-48.0); BG PH 7.394 (7.350-7.450); BG PO2 76.2 mmHg (83.0-108.0); BG SAMPLE SITE RIGHT RADIAL; BG TOTAL HEMOGLOBIN 11.0 g/dL (13.5-17.5); BG VENT MODE NASAL CANNULA
[2025-06-21 10:49] LABS: CREATININE 0.4 mg/dL (0.6-1.3); UREA NITROGEN BLOOD 14 mg/dL (9-23)
[2025-06-21] MEDS ORDERED: METHYLPREDNISOLONE DOSE PACK XX SCH (18:15)
[2025-06-21] MEDS: LEVETIRACETAM 500MG TABLET PO SCH (20:54)
[2025-06-22] VITALS (20 sets, daily range): BP systolic 98–135; BP diastolic 65–94; PULSE 71–115; RESP 14–27; TEMP 36.6–36.8; O2SAT 97–100
[2025-06-22 07:24] LABS: BG BASE EXCESS 4.4 mmol/L (-2.0-3.0); BG CARBOXYHEMOGLOBIN 0.3 % (0.5-1.5); BG DEOXYHEMOGLOBIN 5.8 % (0.0-5.0); BG FLOW(L/min) 2.00 L/min; BG FRACTION INSPIRED OXYGEN 28; BG HCO3 ACT 29.5 mmol/L (21.0-28.0); BG METHEMOGLOBIN 0.3 % (0.5-1.5); BG OXYGEN SATURATION 94.2 % (94.0-98.0); BG OXYHEMOGLOBIN 93.6 % (94.0-98.0); BG PCO2 46.9 mmHg (35.0-48.0); BG PH 7.417 (7.350-7.450); BG PO2 70.2 mmHg (83.0-108.0); BG SAMPLE SITE RIGHT RADIAL; BG TOTAL HEMOGLOBIN 10.6 g/dL (13.5-17.5); BG VENT MODE NASAL CANNULA
[2025-06-22] MEDS: PANTOPRAZOLE 40MG DR TABLET PO SCH (08:03)
[2025-06-22] MEDS: PREDNISONE 20MG TABLET PO SCH (09:59)
[2025-06-22] MEDS: FINASTERIDE 5MG TABLET PO SCH (09:59)
[2025-06-22] MEDS ORDERED: P20 PO ×2 (16:54→17:21)
[2025-06-27] MEDS ORDERED: P20 PO (11:50)
== END 2025-06-22 20:01 | disposition home or self-care (01) | DRG 720 ==
LOC: ER 05:18 → MICUNO 06:18 → EDBEDREQ 06:23 → EDBEDREQTM 06:23 → EDBEDREQSVC 07:45 → EDBEDREQ 07:45 → EDBEDREQTM 07:45 → ENRESERV 08:59 → 5EST 06-20 23:05
PROVIDERS: ADMIT Internal Medicine; ATTEND Internal Medicine
PROC: 5A1945Z Respiratory Ventilation, 24-96 Consecutive Hours (ICD-10-PCS; principal; 2025-06-18)
PROC: 0BH17EZ Insertion of Endotracheal Airway into Trachea, Via Natural or Artificial Opening (ICD-10-PCS; 2025-06-18)
PROC: 0T9B70Z Drainage of Bladder with Drainage Device, Via Natural or Artificial Opening (ICD-10-PCS; 2025-06-18)
PROC: 02HV33Z Insertion of Infusion Device into Superior Vena Cava, Percutaneous Approach (ICD-10-PCS; 2025-06-18)
PROC: B548ZZA Ultrasonography of Superior Vena Cava, Guidance (ICD-10-PCS; 2025-06-18)
PROC: 5A09357 Assistance with Respiratory Ventilation, Less than 24 Consecutive Hours, Continuous Positive Airway Pressure (ICD-10-PCS; 2025-06-21)
PROC: 5A09357 Assistance with Respiratory Ventilation, Less than 24 Consecutive Hours, Continuous Positive Airway Pressure (ICD-10-PCS; 2025-06-22)
DX: A41.9 Sepsis, unspecified organism (principal); J96.22 Acute and chronic respiratory failure with hypercapnia; G93.49 Other encephalopathy; J18.9 Pneumonia, unspecified organism; J44.0 Chronic obstructive pulmonary disease with (acute) lower respiratory infection; D63.8 Anemia in other chronic diseases classified elsewhere; I11.0 Hypertensive heart disease with heart failure; G40.909 Epilepsy, unspecified, not intractable, without status epilepticus; E05.90 Thyrotoxicosis, unspecified without thyrotoxic crisis or storm; L97.528 Non-pressure chronic ulcer of other part of left foot with other specified severity; F17.210 Nicotine dependence, cigarettes, uncomplicated; I50.30 Unspecified diastolic (congestive) heart failure; N40.1 Benign prostatic hyperplasia with lower urinary tract symptoms; J44.1 Chronic obstructive pulmonary disease with (acute) exacerbation; R33.8 Other retention of urine; R73.03 Prediabetes; Z79.899 Other long term (current) drug therapy
CPT/HCPCS: 31500; 31720; 36415; 36573; 36600; 71045; 80048; 80305; 80339; 81003; 82375; 82550; 82553; 82805; 83605; 83735; 84100; 84145; 84439; 84443; 84478; 84484; 85025; 85027; 87070; 93005; 93970; 94003; 94070; 94640; 94660; 94664; 94760; 98960; 99291; A4606; C1725; J0456; J1650; J1953; J2003; J2371; J2470; J2543; J2704; J2919; J3010; J3490; J7042; J7050; J7060; J7512

== ENCOUNTER 2025-07-27 23:41 | Inpatient (IN) | payer MEDICAID ==
[~2025-07-27] VITALS: Ht 177.8 cm; Wt 67.3 kg
[~2025-07-27 23:41] MED LIST changes: -AMLO5TAB88 PO; -METH4TAB95 MT; +P20 PO
[2025-07-27 23:44] VITALS: O2SAT 97
[2025-07-27 23:50] VITALS: RESP 24
[2025-07-28] VITALS (8 sets, daily range): BP systolic 101–124; BP diastolic 82–91; PULSE 95–113; RESP 11–25; TEMP 36.4–36.5292; O2SAT 94–100
[2025-07-28 00:06] LABS: BG BASE EXCESS 2.8 mmol/L (-2.0-3.0); BG CARBOXYHEMOGLOBIN 0.6 % (0.5-1.5); BG DEOXYHEMOGLOBIN 8.4 % (0.0-5.0); BG FRACTION INSPIRED OXYGEN 50; BG HCO3 ACT 32.9 mmol/L (21.0-28.0); BG METHEMOGLOBIN 0.0 % (0.5-1.5); BG OXYGEN SATURATION 91.5 % (94.0-98.0); BG OXYHEMOGLOBIN 91.0 % (94.0-98.0); BG PCO2 84.4 mmHg (35.0-48.0); BG PH 7.209 (7.350-7.450); BG PO2 73.8 mmHg (83.0-108.0); BG SAMPLE SITE RIGHT RADIAL; BG TOTAL HEMOGLOBIN 12.2 g/dL (13.5-17.5); BG VENT MODE MASK - BIPAP; BG VENT RATE 18.0 set
[2025-07-28] MEDS: SODIUM CHLORIDE 0.9% (SEPSIS BOLUS) IV ONE (00:47)
[2025-07-28] MEDS: ONDANSETRON HCL 4MG/2ML INJ IV ONE (00:48)
[2025-07-28] MEDS: CEFTRIAXONE 1GM/50ML 50 ML IV ONE (00:48)
[2025-07-28 00:54] LABS: HEMATOCRIT. 36.4 % (42.0-52.0); HEMOGLOBIN. 11.3 g/dL (14.0-18.0); MEAN PLATELET VOLUME 8.0 fl (7.4-10.4); PLATELET 736 x1000/uL (130-400); RED BLOOD CELL COUNT 4.29 mill/uL (4.7-6.1); RED CELL DISTRIBUTION WIDTH 15.8 % (11.6-14.6)
[2025-07-28 01:03] LABS: CREATININE 0.6 mg/dL (0.6-1.3); UREA NITROGEN BLOOD 8 mg/dL (9-23)
[2025-07-28 01:04] LABS: PROTEIN TOTAL 8.0 g/dL (6.0-8.3)
[2025-07-28 01:05] LABS: ASPARTATE AMINOTRANSFERASE 23 IU/L (<34); BILIRUBIN DIRECT < 0.1 mg/dL (<=3.0); TROPONIN I HIGH SENSITIVITY 11 ng/L (3.0-53)
[2025-07-28 01:06] LABS: BILIRUBIN TOTAL 0.3 mg/dL (0.1-1.0)
[2025-07-28] MEDS: AZITHROMYCIN 500MG/250ML 250 ML IV ONE (03:25)
[2025-07-28] MEDS: AZITHROMYCIN 500MG/250ML 250 ML IV NR (03:25)
[2025-07-28 03:55] LABS: CLARITY URINE CLEAR (CLEAR); COLOR URINE YELLOW (YELLOW); GLUCOSE URINE NEGATIVE (NEGATIVE); KETONES URINE NEGATIVE (NEGATIVE); LEUKOCYTE ESTERASE URINE NEGATIVE (NEGATIVE); NITRITE URINE NEGATIVE (NEGATIVE); OCCULT BLOOD URINE NEGATIVE (NEGATIVE); PH URINE 7.0 (4.5-8.0); PROTEIN URINE 1+ (NEGATIVE); SPECIFIC GRAVITY URINE 1.007 (1.005-1.030); UROBILINOGEN URINE 0.2 E.U./dL (0.2-1.0)
[2025-07-28 04:04] LABS: BAND% 1.0 % (1.0-6.0); LYMPHOCYTES % MANUAL 13.0 % (20.0-50.0); MONOCYTES % MANUAL 3.0 % (2.0-8.0); NEUTROPHILS % MANUAL 83.0 % (45.0-75.0)
[2025-07-28 04:05] LABS: PLATELET ESTIMATE INCREASED
[2025-07-28 05:01] LABS: BACTERIA URINE NONE SEEN; RBC URINE 0-2 /hpf (0-2); SQUAMOUS EPITHELIAL CELL URINE FEW /lpf (RARE/1+); WBC URINE 0-2 /hpf (0-2)
[2025-07-28] MEDS ORDERED: DOCUSATE SODIUM 100MG CAPSULE PO PRN (09:00)
[2025-07-28] MEDS ORDERED: IPRATROPIUM/ALBUTEROL 0.5-3(2.5)MG/3ML NEB HHN PRN (09:00)
[2025-07-28] MEDS ORDERED: ACETAMINOPHEN 325MG TABLET PO PRN (09:00)
[2025-07-28] MEDS ORDERED: GUAIFENESIN 200MG/10ML SUGAR FREE UDC PO PRN (09:00)
[2025-07-28] MEDS ORDERED: ONDANSETRON HCL 4MG/2ML INJ IV PRN (09:00)
[2025-07-28] MEDS ORDERED: ACETAMINOPHEN 650MG/20.3ML UDC GT PRN (09:00)
== END 2025-07-28 12:55 | disposition left against medical advice (07) | DRG 140 ==
LOC: ER 23:41 → EDBEDREQSVC 07-28 01:55 → EDBEDREQTM 07-28 01:55 → EDBEDREQ 07-28 01:55 → ENRESERV 07-28 02:03 → 5EST 07-28 03:42
PROVIDERS: ADMIT Hospitalist; ATTEND Hospitalist
PROC: 5A09357 Assistance with Respiratory Ventilation, Less than 24 Consecutive Hours, Continuous Positive Airway Pressure (ICD-10-PCS; principal; 2025-07-28)
PROC: 5A1935Z Respiratory Ventilation, Less than 24 Consecutive Hours (ICD-10-PCS; 2025-07-28)
DX: J44.1 Chronic obstructive pulmonary disease with (acute) exacerbation (principal); J96.22 Acute and chronic respiratory failure with hypercapnia; G93.49 Other encephalopathy; Z93.0 Tracheostomy status; D64.9 Anemia, unspecified; G40.909 Epilepsy, unspecified, not intractable, without status epilepticus; I11.0 Hypertensive heart disease with heart failure; Z20.822 Contact with and (suspected) exposure to COVID-19; R73.9 Hyperglycemia, unspecified; R33.9 Retention of urine, unspecified; E87.29 Other acidosis; Z53.29 Procedure and treatment not carried out because of patient's decision for other reasons; F17.210 Nicotine dependence, cigarettes, uncomplicated; I25.10 Atherosclerotic heart disease of native coronary artery without angina pectoris; I50.9 Heart failure, unspecified; Z79.51 Long term (current) use of inhaled steroids; Z85.819 Personal history of malignant neoplasm of unspecified site of lip, oral cavity, and pharynx; Z91.148 Patient's other noncompliance with medication regimen for other reason; Z79.899 Other long term (current) drug therapy; Z88.8 Allergy status to other drugs, medicaments and biological substances
CPT/HCPCS: 36415; 36600; 71045; 80048; 80076; 81003; 82375; 82805; 83605; 83880; 84145; 84484; 85025; 87426; 93005; 94002; 94003; 94070; 94664; 99291; A4606; J0456; J0696; J2405; J7030